=== PATIENT | male | born 1960 | race Caucasian/White ===

== ENCOUNTER 2018-12-14 14:33 | Emergency (ER) | payer OTHER ==
--- OUTSIDE RECORDS SUMMARY | 2018-12-14 14:38 | XMS REPORT | Clinical Summary ---
:1960 Author Organization [facility] [employer] Address [address] [place] [address] Care Team Providers Name Role Phone Asked, No Pcp Primary Care Provider Unavailable Allergies No Known Allergies Medications Medication Sig Dispensed Refills Start Date End Date Status sotalol (BETAPACE) 80 Take 80 mg by 0 Active MG tablet mouth 2 (two) times a day. clopidogrel (PLAVIX) 75 Take 75 mg by 0 Active mg tablet mouth daily. atorvastatin (LIPITOR) Take 40 mg by 0 Active 40 MG tablet mouth daily. aspirin (ECOTRIN) 325 Take 325 mg by 0 Active MG enteric coated mouth daily. tablet fluticasone (FLONASE) 2 sprays by Each 0 Active 50 mcg/actuation nasal Nare route daily. spray Active Problems Not on file Family History Medical History Relation Name Comments Heart disease Brother Heart disease Father Colon cancer Mother Heart disease Mother Relation Name Status Comments Brother Father Mother Social History Tobacco Use Types Packs/Day Years Used Date Current Every Day Smoker Cigarettes 1 45 Tobacco Cessation: Ready to Quit: No; Counseling Given: Yes Alcohol Use Drinks/Week oz/Week Comments Yes 3 Cans of beer 1.8 Sex Assigned at Date Recorded Not on file Job Start Date Occupation Industry Not on file Not on file Not on file Travel History Travel Start Travel End No recent travel history available. Last Filed Vital Signs Not on file Plan of Treatment Not on file Results Not on fileafter 12/13/2017 Insurance Payer Benefit Plan / Group Subscriber ID Type Phone Address [facility] CHOICE/CHOICE + xxxxxxxxx HMO/PPO [phone] (Work) Advance Directives Patient has advance care planning documents on file. For more information, please contact:Alejandro [id number] [place] [address]
--- NOTE | 2018-12-14 15:42 | EDPHYS ---
Physician Documentation [facility] Name: Reynaldo Zarate Age: 58 yrs Sex: Male : 1960 Arrival Date: 12/14/2018 Time: 14:35 Bed 19 Private MD: Tim West ED Physician Dez Danielson HPI: 12/14 15:28 This 58 yrs old Male presents to ER via Wheelchair with complaints of Back jmm Pain. 15:28 The patient presents with pain that is acute. Onset: The symptoms/episode jmm began/occurred gradually, 8 day(s) ago. The pain does not radiate. Associated signs and symptoms: Pertinent negatives: dysuria, fever, hematuria, incontinence, numbness, tingling, urinary retention, weakness. This is a 58 year old male with a history of h[place], [place], chronic back pain that presents to the ED with 8 days of lower back pain after bending over. Patient denies incontinence, urinary retention, denies leg weakness. . Historical: - Allergies: 14:49 No Known Allergies; tw2 - Home Meds: 14:49 lisinopril 20 mg Oral tab 1 tab once daily [Active]; sotalol 80 mg Oral tab 1 tab 2 tw2 times per day [Active]; clopidogrel 75 mg oral tab 1 tab once daily [Active]; hydrochlorothiazide 25 mg Oral tab 1 tab once daily [Active]; atorvastatin 40 mg oral tab 1 tab once daily [Active]; aspirin 81 mg Oral chew 1 tab once daily [Active]; - PMHx: 14:49 Angina; Hypertension; Myocardial infarction; tw2 - PSHx: 14:49 cardiac cath; tw2 - Immunization history:: Adult Immunizations up to date. - Social history:: Smoking status: Patient uses tobacco products, smokes one pack cigarettes per day. Patient uses alcohol, 3 times a week. - Ebola Screening: : Patient denies travel to an Ebola-affected area in the 21 days before illness onset. ROS: 15:28 Constitutional: Negative for fever, chills, and weight loss, Cardiovascular: Negative jmm for chest pain, palpitations, and edema, Respiratory: Negative for shortness of breath, cough, wheezing, and pleuritic chest pain. 15:28 Back: Positive for pain with movement. 15:28 MS/extremity: Positive for pain. 15:28 All other systems are negative. Exam: 15:28 Constitutional: This is a well developed, well nourished patient who is awake, alert, jmm and in no acute distress. Head/Face: atraumatic. Eyes: EOMI, no conjunctival erythema appreciated ENT: Moist Mucus Membranes Neck: Trachea midline, Supple Chest/axilla: Normal chest wall appearance and motion. Cardiovascular: Regular rate and rhythm. No edema appreciated Respiratory: Normal respirations, no respiratory distress appreciated Abdomen/GI: Non distended, soft 15:28 MS/ Extremity: Moves all extremities, no obvious deformities appreciated, no edema noted to the lower extremities 15:28 Back: lower lumbar midline tenderness is apprecaited, muscle spasms noted bilaterally. 15:28 Neuro: extensor hallucis longus intact bilaterally. 15:28 Psych: Behavior/mood is pleasant, cooperative. Vital Signs: 14:46 BP 110 / 97; Pulse 90; Resp 17; Temp 97.5(O); Pulse Ox 99% on R/A; Weight 72.57 kg (R); tw2 Height 5 ft. 6 in. (167.64 cm); Pain 6/10; 14:46 Body Mass Index 25.82 (72.57 kg, 167.64 cm) tw2 14:46 if i got to stand it hurts real bad "8/10" tw2 MDM: 15:28 Patient medically screened. [facility] 15:28 Data reviewed: vital signs, nurses notes. Counseling: I had a detailed discussion with [facility] the patient and/or guardian regarding: the historical points, exam findings, and any diagnostic results supporting the discharge/admit diagnosis, the need for outpatient follow up, to return to the emergency department if symptoms worsen or persist or if there are any questions or concerns that arise at home. ED course: PE exam findings are inconsistent with cord compression, cauda equina. Patient denies fever. Patient does not have risk factors for spinal abscess. Patient is advised to follow up with his gis specialist and is otherwise given strict return precautions. Patient understood and agrees with the plan of care. . Administered Medications: 15:49 Drug: Ketorolac 30 mg Route: IM; Site: left deltoid; ls4 16:05 Follow up: Response: No adverse reaction; Marked relief of symptoms ls4 Disposition: 12/15 07:27 Co-signature as Attending Physician, Dez Danielson MD I agree with the assessment and kdr plan of care. Disposition: 12/14/18 15:42 Discharged to Home. Impression: Sprain of ligaments of lumbar spine. - Condition is Stable. - Discharge Instructions: Back Pain, Adult. - Prescriptions for Ibuprofen 800 mg Oral Tablet - take 1 tablet by ORAL route every 8 hours As needed take with food; 30 tablet. Ultracet 37.5- 325 mg Oral Tablet - take 1 tablet by ORAL route every 6 hours - for up to 5 days; do not exceed 8 tablets per day.; 12 tablet. Zanaflex 4 mg Oral Tablet - take 1 tablet by ORAL route every 8 hours As needed; 20 tablet. - Medication Reconciliation Form, Thank You Letter, Antibiotic Education, Prescription Opioid Use form. - Follow up: Private Physician; When: 2 - 3 days; Reason: Recheck today's complaints, Continuance of care, Re-evaluation by your physician. Signatures: Dez Danielson MD MD [facility] Spencer Freitas PA PA jmm Wise, Tara RN RN tw2 Bonnie Woods RN RN ls4 Corrections: (The following items were deleted from the chart) 12/14 15:57 15:42 12/14/2018 15:42 Discharged to Home. Impression: Sprain of ligaments of lumbar ls4 spine. Condition is Stable. Forms are Medication Reconciliation Form, Thank You Letter, Antibiotic Education, Prescription Opioid Use. Follow up: Private Physician; When: 2 - 3 days; Reason: Recheck today's complaints, Continuance of care, Re-evaluation by your physician. bart
--- NOTE | 2018-12-14 15:42 | ER ---
Nurse's Notes [facility] Name: Reynaldo Zarate Age: 58 yrs Sex: Male : 1960 Arrival Date: 12/14/2018 Time: 14:35 Bed 19 Private MD: Tim West Diagnosis: Sprain of ligaments of lumbar spine Presentation: 12/14 14:45 Presenting complaint: Patient states: my lower back has been bothering me for a while, tw2 i have been trying to get to the doctor for an appointment, theres a wait and they wont renew my anti-inflammatory. Transition of care: patient was not received from another setting of care. Onset of symptoms was December 14, 2018. Risk Assessment: Do you want to hurt yourself or someone else? Patient reports no desire to harm self or others. Initial Sepsis Screen: Does the patient meet any 2 criteria? No. Patient's initial sepsis screen is negative. Does the patient have a suspected source of infection? No. Patient's initial sepsis screen is negative. Care prior to arrival: None. 14:45 Method Of Arrival: Wheelchair tw2 14:45 Acuity: FABIEN 4 tw2 Triage Assessment: 14:50 General: Appears in no apparent distress. Behavior is calm, cooperative, appropriate tw2 for age. Musculoskeletal: Circulation, motion, and sensation intact. 16:15 Pain: Complains of pain in back Pain currently is 6 out of 10 on a pain scale. Quality ls4 of pain is described as throbbing. Cardiovascular: No deficits noted. Respiratory: Airway is patent Respiratory effort is even, unlabored, Respiratory pattern is regular, Breath sounds are clear bilaterally. Historical: - Allergies: 14:49 No Known Allergies; tw2 - Home Meds: 14:49 lisinopril 20 mg Oral tab 1 tab once daily [Active]; sotalol 80 mg Oral tab 1 tab 2 tw2 times per day [Active]; clopidogrel 75 mg oral tab 1 tab once daily [Active]; hydrochlorothiazide 25 mg Oral tab 1 tab once daily [Active]; atorvastatin 40 mg oral tab 1 tab once daily [Active]; aspirin 81 mg Oral chew 1 tab once daily [Active]; - PMHx: 14:49 Angina; Hypertension; Myocardial infarction; tw2 - PSHx: 14:49 cardiac cath; tw2 - Immunization history:: Adult Immunizations up to date. - Social history:: Smoking status: Patient uses tobacco products, smokes one pack cigarettes per day. Patient uses alcohol, 3 times a week. - Ebola Screening: : Patient denies travel to an Ebola-affected area in the 21 days before illness onset. Screenin:52 Abuse screen: Denies threats or abuse. Denies injuries from another. Nutritional ls4 screening: No deficits noted. Tuberculosis screening: No symptoms or risk factors identified. Fall Risk None identified. Vital Signs: 14:46 BP 110 / 97; Pulse 90; Resp 17; Temp 97.5(O); Pulse Ox 99% on R/A; Weight 72.57 kg (R); tw2 Height 5 ft. 6 in. (167.64 cm); Pain 6/10; 14:46 Body Mass Index 25.82 (72.57 kg, 167.64 cm) tw2 14:46 if i got to stand it hurts real bad "8/10" tw2 ED Course: 14:35 Patient arrived in ED. mr 14:35 Tim West DO is Private Physician. mr 14:46 Triage completed. tw2 14:49 Arm band placed on. tw2 14:52 Bonnie Woods, TIAGO is Primary Nurse. ls4 14:52 Patient has correct armband on for positive identification. 4 15:08 Spencer [facility]itas [facility] 15:08 Dez Danielson MD is Attending Physician. [facility] 16:00 No provider procedures requiring assistance completed. ls4 16:00 Patient did not have IV access during this emergency room visit. ls4 Administered Medications: 15:49 Drug: Ketorolac 30 mg Route: IM; Site: left deltoid; ls4 16:05 Follow up: Response: No adverse reaction; Marked relief of symptoms ls4 Outcome: 15:42 Discharge ordered by . [facility] 15:57 Patient left the ED. ls4 16:17 Discharged to home ambulatory. ls4 16:17 Condition: good 16:17 Discharge instructions given to patient, Instructed on discharge instructions, follow up and referral plans. medication usage. Signatures: Spencer Freitas PA PA jmm Rivera, Mary mr Graciela Rollins RN RN tw2 Bonnie Woods RN RN ls4
[2018-12-14] MEDS ORDERED: KETOROLAC 30 MG/ML INJ ONE (15:49)
[2018-12-14 16:03] VITALS: BP 110/97; TEMP 97.5; O2SAT 99
== END 2018-12-14 15:57 | disposition home or self-care (01) ==
LOC: ER 14:33
DX: S13.4XXA Sprain of ligaments of cervical spine, initial encounter (principal); I10 Essential (primary) hypertension; I25.2 Old myocardial infarction; F17.210 Nicotine dependence, cigarettes, uncomplicated; Z79.82 Long term (current) use of aspirin
CPT/HCPCS: 96372; 99283

== ENCOUNTER 2022-10-15 09:21 | Day surgery (SDC) | payer OTHER ==
[2022-10-15 09:53] LABS: Absolute Lymphocytes (CBC) 2.2 K/uL (0.7-4.9); Hematocrit 37.3 % (39.6-49.0); Lymphocytes % 25.9 % (15.3-44.8); MCV 85.8 fL (80-100); MPV 7.5 fL (7.6-11.3); RBC Red Blood Cell Count 4.35 M/uL (4.33-5.43)
[2022-10-15 10:01] LABS: Potassium 4.1 mmol/L (3.5-5.1)
[2022-10-15] MEDS ORDERED: Ringers Lactate 1,000 ML IV ONE (10:03)
[2022-10-15] MEDS: CEFAZOLIN SODIUM 2 GM/VIAL ONE ×2 (11:09→11:40)
[2022-10-15] MEDS ORDERED: propofoL 200 MG/20 ML VIAL IV ONE ×2 (11:11→11:30)
[2022-10-15] MEDS ORDERED: MIDAZOLAM HCL 2 MG/2 ML INJ ONE (11:11)
[2022-10-15] MEDS ORDERED: LIDOCAINE 2% MPF 5 ML VIAL ONE (11:11)
[2022-10-15] MEDS ORDERED: FENTANYL CITR 100 MCG/2 ML ONE (11:11)
[2022-10-15] MEDS: BUPIVACAINE 0.25% PF 30 ML VIAL ONE ×2 (11:31→11:46)
[2022-10-15] MEDS ORDERED: NS 0.9% VIAL 10 ML ONE (11:39)
[2022-10-15] MEDS ORDERED: BUPIVACAINE 0.25% PF 30 ML VIAL ONE (11:45)
[2022-10-15] MEDS ORDERED: ONDANSETRON 4 MG/2 ML VIAL ONE (11:47)
[2022-10-15] MEDS ORDERED: KETOROLAC 30 MG/ML INJ ONE (11:47)
--- NOTE | 2022-10-15 12:05 | P.OP ---
Preoperative diagnosis: Central Back Infected Cyst Postoperative diagnosis: Central Back Infected Cyst Primary procedure: Wide local excision of Central Back Infected Cyst Anesthesia: MAC + Local Estimated blood loss: <2cc Specimen: Cultures and Debridement tissue Findings: infected cyst with abscess - sebaceous Complications: None Transferred to: Recovery Room Condition: Good
[2022-10-15 12:41] VITALS: O2SAT 100
[2022-10-15 13:24] VITALS: BP 117/64; TEMP 97
[2022-10-15] MEDS ORDERED: HYDROCODONE/APAP 10/325 TAB ONE (13:29)
--- NOTE | 2022-10-15 17:41 | OP ---
Date of Procedure: 10/15/2022 Surgeon: Osvaldo Adan MD, Preoperative Diagnosis: Central back infected cyst. Postoperative Diagnosis: Central back infected cyst. Procedure Performed: Wide local excision of central back infected cyst. Anesthesia: MAC plus local with 0.25% Marcaine. Estimated Blood Loss: Less than 2 cc. Specimen: Culture sent both aerobic and anaerobic speciation as well as debridement tissue/cyst. Findings: Infected cyst consistent with sebaceous cyst with abscess. Complications: None. Disposition: The patient was transferred to the recovery room in good condition. Procedure In Detail: After informed consent was obtained, the patient was brought to the operating r oom, prepped and draped in the usual sterile fashion after adequate anesthesia was achieved. An area of the central back for approximately 9 cm x 6 cm was anesthetized with 0.25% Marcaine over a large lemon sized skin lesion. I circumferentially took down the skin overlying this infected draining cys tic structure of the upper central back using a 15 blade down to subcutaneous tissues. I dissected c ircumferentially around the cyst using electrocautery to remove the entire cyst and contents. Absces s material was emanating from the cyst at the skin level. This was cultured through the sac on the i nside. Once inside access was obtained for both aerobic and anaerobic speciation, the cyst was remov ed in its entirety, sent off for pathological examination. The area was copiously irrigated. Hemost asis was achieved with electrocautery. The wound was then packed with Vashe, damp to dry soaked in a Kerlix and dry dressing was applied on top. The patient tolerated the procedure well without eviden ce of complication and transferred to PACU in good condition. All counts were correct at the end of the case. TK/MODL Voice ID: [id number] Report ID: [id number]
--- NOTE | 2022-10-17 17:44 | EKG ---
Test Date: 2022-10-15 Test Time: 09:48:59 Leather Belt Maker: JENNIFER MEASUREMENT RESULTS: Intervals: Rate: 74 VT: 130 QRSD: 76 QT: 436 QTc: 483 Gilman: P: 35 VT: 130 QRS: 50 T: 68 INTERPRETIVE STATEMENTS: Sinus rhythm with premature atrial complexes with aberrant conduction Prolonged QT Abnormal ECG Compared to ECG 10/18/2017 09:30:14 Atrial premature complex(es) now present Aberrant conduction of supraventricular beat(s) now present Prolonged QT interval now present Electronically Signed On 10-17-22 17:41:33 SERVICE OPERATOR by Damien Evans
== END 2022-10-15 14:15 | disposition home or self-care (01) ==
LOC: DS 09:21
PROVIDERS: ATTEND Surgery
PROC: 0JB70ZZ Excision of Back Subcutaneous Tissue and Fascia, Open Approach (ICD-10-PCS; principal; 2022-10-15 11:30)
DX: L72.9 Follicular cyst of the skin and subcutaneous tissue, unspecified (principal); I10 Essential (primary) hypertension; I25.2 Old myocardial infarction; F17.210 Nicotine dependence, cigarettes, uncomplicated
CPT/HCPCS: 93005; 87070; 85025; 80048; 36415; 87205; 88304; 87075; 11406; J2704 ×2; J2001; J2250; J3010; A4216; J7120; J2405; 88305

== ENCOUNTER 2024-01-06 18:56 | Emergency (ER) | payer OTHER, SELFPAY ==
[2024-01-06 20:06] LABS: Specific Gravity < 1.005 (1.005-1.030); Sqamous Epithelial None Seen /HPF (None Seen); Urine Bacteria None Seen /HPF (<20); Urine Bilirubin NEGATIVE (Negative); Urine Blood 1+ (Negative); Urine Clarity Clear (Clear); Urine Color Colorless (Yellow); Urine Culture Reflex Order NOT NEEDED; Urine Glucose NEGATIVE (Negative); Urine Ketones NEGATIVE (Negative); Urine Microscopic Reflex YN ORDER UMIC; Urine Nitrite NEGATIVE (Negative); Urine Protein NEGATIVE (Negative); Urine RBC <5 /HPF (None Seen); Urine Urobilinogen Normal (Normal); Urine WBC <5 /HPF (<5); Urine pH 5.5 (5.0-7.0)
[2024-01-06] MEDS ORDERED: TDAP (DIPHTH,PERTUSS(ACELL),TET VAC) 0.5 ML VIAL IMVAC ONE (20:10)
[2024-01-06] MEDS ORDERED: METOPROLOL TAR 50 MG TAB ONE (20:10)
[2024-01-06] MEDS ORDERED: ACETAMINOPHEN 325 MG TABLET ONE (20:10)
[2024-01-06] MEDS ORDERED: AMLODIPINE 10 MG TAB ONE (20:10)
--- NOTE | 2024-01-06 20:53 | RAD REPORT ---
EXAM DESCRIPTION: CT - Head C Spine Cap Andrea Costello - 01/06/2024 8:09 pm CLINICAL HISTORY: PAIN COMPARISON: No comparisons TECHNIQUE: Head and cervical spine CT images were obtained without IV contrast. Chest, abdomen, and pelvis CT images were obtained without IV contrast. Multiplanar reformats were generated and reviewed . All CT scans are performed using dose optimization technique as appropriate and may include automated exposure control or mA/KV adjustment according to patient size. FINDINGS: CT HEAD: No intracranial hemorrhage, mass effect, or edema. No evidence of acute territorial infarct. No midli ne shift or abnormal fluid collection. The ventricles are normal in caliber and configuration for age . Basal cisterns are patent. Left maxillary sinus mucous retention cyst. No acute skull fracture. CT CERVICAL SPINE: No acute cervical spine fracture or subluxation. Vertebral body heights are well maintained. Facet mirna ints are normal in alignment. No hyperattenuating canal hematoma. Prevertebral and paraspinous soft t issues are unremarkable. CT CHEST: No pneumothorax, pulmonary contusion or pleural fluid collection. Aortic graft reconstruction. No med iastinal hematoma and the aorta and pulmonary arteries are unremarkable. No chest will mass or abnorm al axillary finding. No displaced rib fracture or other significant bony finding. CT ABDOMEN/ PELVIS: No evidence of traumatic injury to solid abdominal viscera. Gallbladder and biliary tree are unremark able. No bowel injury or significant finding. Bilateral inguinal hernias containing fat. Mild prostat omegaly. Aorto bi-iliac stents in place. No free air, free fluid or abnormal fat stranding. No urinar y bladder abnormality. No significant bony finding. IMPRESSION: No acute traumatic findings. Incidental findings as above.
[2024-01-06] MEDS ORDERED: HYDRALAZINE HCL 25 MG TABLET ONE (21:13)
[2024-01-06] MEDS ORDERED: NA CHLORIDE 0.9% 500 ML ONE (21:14)
[2024-01-06] MEDS ORDERED: HYDRALAZINE HCL 20 MG/ML VIAL ONE (21:14)
[2024-01-06] MEDS ORDERED: BACI/NEOMYCIN/POLY OINT 15GM TOP ONE (21:14)
[2024-01-06 21:24] LABS: Absolute Eosinophils 0.1 K/uL (0-0.5); Absolute Lymphocytes (CBC) 1.4 K/uL (0.7-4.9); Absolute Monocytes 0.5 K/uL (0.1-1.3); Absolute Neutrophil 4.8 K/uL (1.8-8.0); Basophils % 0.5 % (0-1.3); Eosinophils % 1.4 % (0-4.4); Hematocrit 48.5 % (39.6-49.0); Hemoglobin 16.6 g/dL (13.6-17.9); Lymphocytes % 20.9 % (15.3-44.8); MCH 31.9 pg (27.0-35.0); MCHC 34.2 g/dL (32.0-36.0); MCV 93.3 fL (80-100); MPV 8.2 fL (7.6-11.3); Monocytes % 7.7 % (3.3-12.3); Neutrophils % 69.5 % (41.7-73.7); Nucleated Red Blood Cells % 0.1 % (0-0); Platelets 219 thou/uL (152-406); Red Cell Distribution Width 13.8 % (12.1-15.2)
[2024-01-06 21:40] LABS: Albumin 3.5 g/dL (3.4-5.0); Albumin/Globulin Ratio 0.9 (1.1-1.8); Anion Gap 11.7 mEq/L (5.0-15.0); Bilirubin Total 0.3 mg/dL (0.2-1.0); Globulin 3.9 g/dL (2.3-3.5); Potassium 3.7 mEq/L (3.5-5.1); Protein, Total 7.4 g/dL (6.4-8.2)
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
[2024-01-06] MEDS ORDERED: KETOROLAC 30 MG/ML INJ ONE (22:51)
[2024-01-06] MEDS ORDERED: DIPHENHYDRAMINE 50 MG/ML VIAL ONE (22:51)
[2024-01-06] MEDS ORDERED: NA CHLORIDE 0.9% 1,000 ML ONE (22:52)
[2024-01-06] MEDS ORDERED: METOCLOPRAMIDE 10 MG/2mL INJ ONE (22:52)
[2024-01-07 01:16] VITALS: BP 193/82; TEMP 98.4; O2SAT 95
--- NOTE | 2024-01-07 11:51 | EKG ---
Test Date: 2024-01-06 Test Time: 18:37:21 Coupon Clerk: KRISTIE MEASUREMENT RESULTS: Intervals: Rate: 96 [place]: 152 QRSD: 84 QT: 386 QTc: 487 [place]: P: 62 [place]: 152 QRS: 2 T: 45 INTERPRETIVE STATEMENTS: Normal sinus rhythm Inferior infarct, age undetermined Abnormal ECG Compared to ECG 10/15/2022 09:48:59 Myocardial infarct finding now present Atrial premature complex(es) no longer present Aberrant conduction of supraventricular beat(s) no longer present Prolonged QT interval no longer present Electronically Signed On 01-07-24 11:49:02 CDT by Damien Evans
--- NOTE | 2024-01-07 17:25 | RAD REPORT ---
EXAM DESCRIPTION: Head Brain Wo Cont CLINICAL HISTORY: 63 years Male Headache; Dizziness TECHNIQUE: Contiguous axial CT images obtained through the brain without IV contrast. Coronal and sa gittal reformats also provided. This CT exam was performed according to our departmental dose-optimization program, which includes on e or more of the following dose reduction techniques: automated exposure control, adjustment of the m A and/or kV according to patient size, and/or use of iterative reconstruction technique. COMPARISON: Examination performed earlier the same day. FINDINGS: There is no acute skull fracture, intracranial hemorrhage, extra-axial collection, or acut e transcortical infarction. The ventricles are normal in size and contour without mass-effect or midl ine shift. The paranasal sinuses and mastoid air cells are clear. IMPRESSION: No acute intracranial abnormalities. Electronically signed by: Stephanie Alicea MD 01/06/2024 11:20 PM CDT Due to temporary technical issues with the PACS/Fluency reporting system, reports are being signed by the in house radiologists without review as a courtesy to insure prompt reporting. The interpreting radiologist is fully responsible for the content of the report.
== END 2024-01-07 00:15 | disposition home or self-care (01) ==
LOC: ER 18:56
DX: S60.512A Abrasion of left hand, initial encounter (principal); I73.9 Peripheral vascular disease, unspecified; I10 Essential (primary) hypertension; V49.9XXA Car occupant (driver) (passenger) injured in unspecified traffic accident, initial encounter
CPT/HCPCS: 36415; 70450; 71250; 72125; 80053; 81001; 85025; 93005; 96361; 96372; 96374; 96375; 99285; J0360; J1200; J2765; J7030; J7040

== ENCOUNTER 2024-01-09 11:46 | Emergency (ER) | payer OTHER, SELFPAY ==
--- NOTE | 2024-01-09 12:18 | RAD REPORT ---
EXAM DESCRIPTION: CT - Head Brain Wo Cont - 01/09/2024 12:10 pm CLINICAL HISTORY: PAIN COMPARISON: Head Brain Wo Cont dated 01/06/2024 TECHNIQUE: All CT scans are performed using dose optimization technique as appropriate and may inclu de automated exposure control or mA/KV adjustment according to patient size. FINDINGS: No intracranial hemorrhage, hydrocephalus or extra-axial fluid collection. Interval develo pment of a small moderate infarct involving the right occipital and and posterior temporal lobe. This is new since 12/29/2023. Mucous retention cyst in the left maxillary sinus. The calvarium is intact. IMPRESSION: New small to moderate right posterior temporal lobe/medial occiptal lobe infarct. No acu te intracranial hemorrhage.
[2024-01-09] MEDS ORDERED: LABETALOL 20 MG/4ML SYRINGE IV ONE (12:36)
[2024-01-09] MEDS ORDERED: ASPIRIN 81 MG CHEWABLE TABLET ONE (12:36)
--- NOTE | 2024-01-09 12:55 | RAD REPORT ---
EXAM DESCRIPTION: RAD - Chest Single View - 01/09/2024 12:42 pm CLINICAL HISTORY: CHEST PAIN COMPARISON: Chest Pa And Lat (2 Views) dated 07/29/2022; Chest Single View dated 10/18/2017; CHEST SIN GLE VIEW dated 04/04/2013; CHEST SINGLE VIEW dated 02/18/2013 FINDINGS: Lines: None. Lungs: No evidence of edema or pneumonia. Pleural: No significant pleural effusions or pneumothorax. Cardiac: The heart size is within normal limits. Mediastinum: Descending thoracic aortic stent graft. Bones: No acute fractures. Other: None IMPRESSION: No acute cardiopulmonary disease.
[2024-01-09 13:06] LABS: Absolute Basophils 0.1 K/uL (0-0.5); Absolute Eosinophils 0.1 K/uL (0-0.5); Absolute Lymphocytes (CBC) 2.3 K/uL (0.7-4.9); Absolute Neutrophil 7.3 K/uL (1.8-8.0); Basophils % 0.6 % (0-1.3); Eosinophils % 0.7 % (0-4.4); Hematocrit 51.9 % (39.6-49.0); Hemoglobin 17.2 g/dL (13.6-17.9); Lymphocytes % 21.2 % (15.3-44.8); MCH 31.1 pg (27.0-35.0); MCHC 33.1 g/dL (32.0-36.0); MPV 8.6 fL (7.6-11.3); Monocytes % 8.9 % (3.3-12.3); Neutrophils % 68.6 % (41.7-73.7); Platelets 271 thou/uL (152-406); RBC Red Blood Cell Count 5.52 M/uL (4.33-5.43)
[2024-01-09 13:23] LABS: Albumin 3.7 g/dL (3.4-5.0); Albumin/Globulin Ratio 0.8 (1.1-1.8); Anion Gap 13.7 mEq/L (5.0-15.0); Bilirubin Direct 0.2 mg/dL (0-0.2); Bilirubin Indirect, Calculated 0.7 mg/dL (0.2-0.8); Bilirubin Total 0.9 mg/dL (0.2-1.0); Globulin 4.4 g/dL (2.3-3.5); Magnesium 2.1 mg/dL (1.6-2.4); Potassium 3.7 mEq/L (3.5-5.1); Protein, Total 8.1 g/dL (6.4-8.2)
--- NOTE | 2024-01-09 13:59 | RAD REPORT ---
EXAM DESCRIPTION: CT - Neck Angio - 01/09/2024 1:41 pm CLINICAL HISTORY: stroke COMPARISON: No comparisons TECHNIQUE: CT angiography of the neck vessels was performed with maximum intensity reformatted image s. CAROTID STENOSIS REFERENCE USING NASCET CRITERIA: Mild - <50% stenosis. Moderate - 50-69% stenosis. Severe - 70-94% stenosis. Near occlusion - 95-99% stenosis. Occluded - 100% stenosis. All CT scans are performed using dose optimization technique as appropriate and may include automated exposure control or mA/KV adjustment according to patient size. FINDINGS: A left aortic arch is identified with normal three vessel configuration of the great vesse ls. No significant flow abnormality is seen of the common carotid bilaterally. No significant stenosis is identified involving the cervical segments of both internal carotid arteri es. Normal flow is seen within both vertebral arteries. Left subclavian artery stent. IMPRESSION: No significant flow abnormality of the neck vessels is identified.
--- NOTE | 2024-01-09 14:01 | RAD REPORT ---
EXAM DESCRIPTION: CT - Head angio - 01/09/2024 1:41 pm CLINICAL HISTORY: stroke COMPARISON: Head Brain Wo Cont dated 01/09/2024; Head Brain Wo Cont dated 01/06/2024 TECHNIQUE: CT angiography of the head was performed with maximum intensity reformatted images. 3D ma ximum intensity pixel (MIP) reconstructions were created All CT scans are performed using dose optimization technique as appropriate and may include automated exposure control or mA/KV adjustment according to patient size. FINDINGS: Anterior circulation: No aneurysm or large vessel occlusion. No hemodynamically significant stenosis. No arteriovenous malf ormation identified. 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 The left posterior cerebral artery is patent. The basilar artery and vertebral arteries are both patent. No arteriovenous malformation identified. 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
[2024-01-09] MEDS ORDERED: ONDANSETRON 4 MG/2 ML VIAL ONE (14:02)
[2024-01-09] MEDS ORDERED: MORPHINE 4 MG/ML SYR ONE (14:02)
[2024-01-09 14:12] LABS: PT Prothrombin Time 13.3 SECONDS (9.5-12.5); Protime INR 1.22
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
[2024-01-09 20:47] VITALS: BP 168/85; TEMP 97.9; O2SAT 95
--- NOTE | 2024-01-10 13:42 | EKG ---
Test Date: 2024-01-09 Test Time: 11:22:43 Screen Tacker: DANETTE MEASUREMENT RESULTS: Intervals: Rate: 97 MI: 130 QRSD: 76 QT: 362 QTc: 459 [place]: P: 75 MI: 130 QRS: 30 T: 66 INTERPRETIVE STATEMENTS: Sinus rhythm with occasional premature ventricular complexes Otherwise normal ECG Compared to ECG 01/06/2024 18:37:21 Ventricular premature complex(es) now present Myocardial infarct finding no longer present Electronically Signed On 01-10-24 13:37:00 CDT by Damien Evans
== END 2024-01-09 16:15 | disposition short-term general hospital (02) ==
LOC: ER 11:46
DX: I63.431 Cerebral infarction due to embolism of right posterior cerebral artery (principal); R29.705 NIHSS score 5; I10 Essential (primary) hypertension; R07.9 Chest pain, unspecified; Z72.0 Tobacco use
CPT/HCPCS: 96365; 93005; 85025; 80048; 36415; 83735; 82550; 85610; 80076; 84484; 83880; 70450; 70496; 70498; 71045; 96375; 99285; 96366; Q9967; J2405

== ENCOUNTER 2024-01-14 14:21 | Inpatient (IN) | payer OTHER ==
[2024-01-14] MEDS ORDERED: ACETAMINOPHEN 325 MG TABLET PO PRN (19:24)
[2024-01-14] MEDS ORDERED: CYCLOBENZAPRINE 10 MG TAB PO PRN (19:30)
[2024-01-14] MEDS ORDERED: DOCUSATE NA/SENNA CONC 1 TAB PO PRN (19:36)
[2024-01-14] MEDS: HEPARIN 5000 UNIT/ML 1 ML VIAL SQ SCH (20:00)
[2024-01-14] MEDS: HYDROCODONE/APAP 5/325 MG TAB PO PRN (20:54)
[2024-01-14] MEDS: ATORVASTATIN 80 MG TAB PO SCH (20:54)
[2024-01-14] MEDS: MELATONIN 5 MG TABLET PO PRN (20:55)
[2024-01-14 23:50] LABS: Specific Gravity 1.015 (1.005-1.030); Sqamous Epithelial None Seen /HPF (None Seen); Urine Bacteria None Seen /HPF (<20); Urine Bilirubin NEGATIVE (Negative); Urine Blood Negative (Negative); Urine Clarity Clear (Clear); Urine Color Light-Yellow (Yellow); Urine Culture Reflex Order NOT NEEDED; Urine Glucose NEGATIVE (Negative); Urine Ketones NEGATIVE (Negative); Urine Micro Reflex YN NO BILL MICROSCOPIC; Urine Nitrite NEGATIVE (Negative); Urine Protein NEGATIVE (Negative); Urine RBC <5 /HPF (None Seen); Urine Urobilinogen Normal (Normal); Urine WBC <5 /HPF (<5); Urine pH 5.5 (5.0-7.0)
[2024-01-15 05:57] VITALS: BMI 26.6
[2024-01-15 07:06] LABS: Absolute Basophils 0.1 K/uL (0-0.5); Absolute Eosinophils 0.1 K/uL (0-0.5); Absolute Lymphocytes (CBC) 1.9 K/uL (0.7-4.9); Absolute Monocytes 0.9 K/uL (0.1-1.3); Absolute Neutrophil 6.6 K/uL (1.8-8.0); Basophils % 0.8 % (0-1.3); Eosinophils % 1.5 % (0-4.4); Hematocrit 46.2 % (39.6-49.0); Hemoglobin 15.5 g/dL (13.6-17.9); Lymphocytes % 19.3 % (15.3-44.8); MCH 31.5 pg (27.0-35.0); MCHC 33.6 g/dL (32.0-36.0); MCV 93.9 fL (80-100); MPV 8.5 fL (7.6-11.3); Monocytes % 9.5 % (3.3-12.3); Neutrophils % 68.9 % (41.7-73.7); Platelets 358 thou/uL (152-406); RBC Red Blood Cell Count 4.92 M/uL (4.33-5.43); Red Cell Distribution Width 13.7 % (12.1-15.2)
[2024-01-15] MEDS: POLYETHYL GLY 3350 17 GM/DOSE PO SCH (07:21)
[2024-01-15 07:22] LABS: Albumin 3.3 g/dL (3.4-5.0); Anion Gap 5.6 mEq/L (5.0-15.0); Magnesium 2.3 mg/dL (1.6-2.4); Potassium 4.6 mEq/L (3.5-5.1); Prealbumin 20.5 mg/dL (20-40)
[2024-01-15] MEDS: ASPIRIN 81 MG CHEWABLE TABLET PO SCH (07:44)
[2024-01-15] MEDS: CLOPIDOGREL 75 MG TABLET PO SCH (07:44)
[2024-01-15] MEDS: NIFEDIPINE XL 30 MG TABLET PO SCH (11:00)
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
[2024-01-17] MEDS: cloNIDine HCL 0.1 MG TAB PO ONE (10:15)
[2024-01-17] MEDS ORDERED: ACETAMINOPHEN 325 MG TABLET PO PRN (16:23)
--- NOTE | 2024-01-17 17:16 | P.PN ---
Subjective Date of Service: 01/17/24 Chief Complaint: Post stroke with impaired mobility and coordination Patient states he is doing much better. He denies any complaint. Physical Examination - Vital Signs Temperature: 96.8 F Blood Pressure: 160/85 Pulse: 85 Respirations: 17 Pulse Ox (%): 97 - Studies Microbiology Data (last 24 hrs): 01/14/24 23:30 Clean Catch Urine [place] Count - Final <10,000 CFU/ML. 01/14/24 23:30 Clean Catch Urine - Final MIXED AIDAN. Assessment And Plan - Current Problems (Diagnosis) (1) Acute CVA (cerebrovascular accident) Current Visit: Yes Status: Acute (2) Hypertension Current Visit: Yes Status: Acute (3) Peripheral vascular disease Current Visit: Yes Status: Acute - Plan Physical examination General: Alert and oriented x3, NAD, HEENT: Conjunctiva not pale, anicteric sclera Neck: Supple, no elevated JVD Heart: Heart sounds 1 and 2 normal, regular rhythm, normal rate, no pedal edema Lungs: Clear to auscultation bilaterally, adequate breath sounds bilaterally, no rhonchi or crackles. Abdomen: Soft, nondistended, nontender, normal bowel sounds. Extremities: No tenderness, no deformity Skin: Normal skin turgor, no rash, no nodules or ulcers. Neuro: No focal motor deficit, patient has dysmetria. Psychiatry: No agitation. Progress Made With Physical And Occupational Therapy: The patient performed seated EOB lower extremity exercise heel raises, toes raises, hip flexion, and knee extension 2 x 20 each. He has been able to ambulate about 250 feet with RW, pick items from the floor. He does have impaired depth perception. Overall patient is making significant progress with therapy. Plan: 1. He will have physical, occupational, and speech therapy for 3.5 hours, 5 of 7 days. 2. Aspirin and Plavix daily for stroke risk reduction. 3. Statins for hyperlipidemia and stroke risk reduction. 4. Antihypertensives. Comorbidities That Are Impacting His Rehabilitation: Balance, poor truncal and head control, incoordination, ataxia, decreased vision, and depth perception.
[2024-01-17] MEDS: HYDROCODONE/APAP 5/325 MG TAB PO PRN ×2 (19:45→21:43)
[2024-01-17] MEDS: MELATONIN 5 MG TABLET PO PRN (19:45)
[2024-01-17] MEDS: CYCLOBENZAPRINE 10 MG TAB PO PRN (19:45)
[2024-01-17] MEDS: DOCUSATE NA/SENNA CONC 1 TAB PO SCH (19:45)
[2024-01-17] MEDS: ATORVASTATIN 40 MG TAB PO SCH (19:46)
[2024-01-18] MEDS: POLYETHYL GLY 3350 17 GM/DOSE PO SCH (07:03)
[2024-01-18] MEDS: NIFEDIPINE XL 30 MG TABLET PO SCH (07:05)
[2024-01-18] MEDS: ASPIRIN 81 MG CHEWABLE TABLET PO SCH (07:05)
[2024-01-18] MEDS: APIXABAN 2.5 MG TABLET PO SCH (20:10)
[2024-01-18] MEDS: cloNIDine HCL 0.1 MG TAB PO PRN (20:10)
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
[2024-01-19] MEDS ORDERED: ACETAMINOPHEN 500 MG TAB PO PRN (08:07)
[2024-01-19] MEDS: LIDOCAINE 4% PATCH TOP SCH (08:10)
[2024-01-19] MEDS: HYDROCODONE/APAP 5/325 MG TAB PO PRN (08:45)
--- NOTE | 2024-01-19 13:08 | P.RH.PN ---
Estimated Length of Stay: 13 Expected Discharge Date: 01/26/24 Discharge Disposition Plan: Home Family Support: Yes Halfway Goal: Mobility, Transfers, Self Care Vital Signs: Last Vital Signs Temp 97.4 F 01/19/24 07:34 Pulse 67 01/19/24 08:09 Resp 18 01/19/24 09:45 BP 168/83 H 01/19/24 08:09 Pulse Ox 96 01/19/24 09:45 Laboratory: Laboratory Last Values WBC 9.60 thou/uL (4.3-10.9) 01/15/24 06:51 RBC 4.92 M/uL (4.33-5.43) 01/15/24 06:51 Hgb 15.5 g/dL (13.6-17.9) 01/15/24 06:51 Hct 46.2 % (39.6-49.0) 01/15/24 06:51 MCV 93.9 fL (80-100) 01/15/24 06:51 MCH 31.5 pg (27.0-35.0) 01/15/24 06:51 MCHC 33.6 g/dL (32.0-36.0) 01/15/24 06:51 RDW 13.7 % (12.1-15.2) 01/15/24 06:51 Plt Count 358 thou/uL (152-406) 01/15/24 06:51 MPV 8.5 fL (7.6-11.3) 01/15/24 06:51 Neutrophils % 68.9 % (41.7-73.7) 01/15/24 06:51 Lymphocytes % 19.3 % (15.3-44.8) 01/15/24 06:51 Monocytes % 9.5 % (3.3-12.3) 01/15/24 06:51 Eosinophils % 1.5 % (0-4.4) 01/15/24 06:51 Basophils % 0.8 % (0-1.3) 01/15/24 06:51 Absolute Neutrophils 6.6 K/uL (1.8-8.0) 01/15/24 06:51 Absolute Lymphocytes 1.9 K/uL (0.7-4.9) 01/15/24 06:51 Absolute Monocytes 0.9 K/uL (0.1-1.3) 01/15/24 06:51 Absolute Eosinophils 0.1 K/uL (0-0.5) 01/15/24 06:51 Absolute Basophils 0.1 K/uL (0-0.5) 01/15/24 06:51 Sodium 139 mEq/L (136-145) 01/15/24 06:51 Potassium 4.6 mEq/L (3.5-5.1) 01/15/24 06:51 Chloride 110 mEq/L (98-107) H 01/15/24 06:51 Carbon Dioxide 28 mEq/L (21-32) 01/15/24 06:51 Anion Gap 5.6 mEq/L (5.0-15.0) 01/15/24 06:51 BUN 19 mg/dL (7-18) H 01/15/24 06:51 Creatinine 1.20 mg/dL (0.70-1.30) 01/15/24 06:51 Est GFR (CKD-EPI) 68 ml/min (=/>90) L 01/15/24 06:51 Glucose 128 mg/dL (74-106) H 01/15/24 06:51 Calcium 9.3 mg/dL (8.5-10.1) 01/15/24 06:51 Magnesium 2.3 mg/dL (1.6-2.4) 01/15/24 06:51 Albumin 3.3 g/dL (3.4-5.0) L 01/15/24 06:51 Prealbumin 20.5 mg/dL (20-40) 01/15/24 06:51 Urine Color Light-yellow (Yellow) 01/14/24 23:30 Urine Clarity Clear (Clear) 01/14/24 23:30 Urine pH 5.5 (5.0-7.0) 01/14/24 23:30 Ur Specific [place] 1.015 (1.005-1.030) 01/14/24 23:30 Glucose (UA)(Auto) Negative (Negative) 01/14/24 23:30 Urine Ketones Negative (Negative) 01/14/24 23:30 Urine Blood Negative (Negative) 01/14/24 23:30 Urine Nitrite Negative (Negative) 01/14/24 23:30 Urine Bilirubin Negative (Negative) 01/14/24 23:30 Urine Urobilinogen Normal (Normal) 01/14/24 23:30 Ur Leukocyte Esterase Negative Antonio/uL (Negative) 01/14/24 23:30 Urine RBC <5 /HPF (None Seen) 01/14/24 23:30 Urine WBC <5 /HPF (<5) 01/14/24 23:30 Ur Squamous Epith Cells None seen /HPF (None Seen) 01/14/24 23:30 Urine Bacteria None seen /HPF (<20) 01/14/24 23:30 Urine Culture Reflexed Not needed 01/14/24 23:30 Urine Total Protein Negative (Negative) 01/14/24 23:30 Weight: 165 lb Wound Present: No Closed Surgical Incision Present: No Negative Pressure Wound Therapy Present: No Physician Update: Labs reviewed and are good. Mild to moderate back pain addressed with multiple modalities. He is doing very well with all therapy. SLUMS 25, mild memory loss. Met all speech goals. Supervison bed mobility. 835' with RW and supervision. WC 500' with SBA. Has left visual field cuts but still walks with good vision approach. 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 Please see the Rehabilitation Signature page for all necessary signatures.
[2024-01-20 07:43] VITALS: TEMP 98
[2024-01-20 09:30] VITALS: BP 139/76
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
== END 2024-01-20 10:00 | disposition home health service (06) | DRG 57 ==
LOC: 5TH 18:15
PROVIDERS: ADMIT Psychiatry & Neurology Neurology with Special Qualifications in Child Neurology; ATTEND Psychiatry & Neurology Neurology with Special Qualifications in Child Neurology
DX: I69.398 Other sequelae of cerebral infarction (principal); I69.312 Visuospatial deficit and spatial neglect following cerebral infarction; R26.89 Other abnormalities of gait and mobility; I10 Essential (primary) hypertension; I73.9 Peripheral vascular disease, unspecified; E78.5 Hyperlipidemia, unspecified; F10.10 Alcohol abuse, uncomplicated; I48.91 Unspecified atrial fibrillation; M62.838 Other muscle spasm; G47.00 Insomnia, unspecified; I25.2 Old myocardial infarction
CPT/HCPCS: 36415; 80048; 81001; 82040; 83735; 84134; 85025; 87086; 87088; 92523; 97010; 97110; 97112; 97116; 97129; 97163; 97165; 97530; 97542; J1644; J2001